=== PATIENT | female | born 1975 | race Caucasian/White ===

== ENCOUNTER 2017-10-11 16:07 | Emergency (ER) | payer OTHER ==
[2017-10-11 16:29] VITALS: RESP 18; TEMP 98
[2017-10-11 16:30] LABS: PLATELET COUNT 208 10^3/uL (150-400)
--- NOTE | 2017-10-11 16:39 | EDPHY ---
H & P Stated Complaint: sent down from Dr. Contreras office for further eval of CP Time Seen by Provider: 10/11/17 16:10 HPI/ROS: This pleasant 42-year-old female has a 5 day history of chest pain described as a dull ache, substernal in location"like a knot". She notes no exacerbating or alleviating factors. She has a long history of chest pains in the premenstrual. But reports that typically the pains last for 2 days. This time she has had pain for 5 days. Concerned about increased duration she presented initially to an urgent care clinic where she had a 12 lead EKG performed at 11: 27 a.m. On October 07 the reveals a normal EKG the rate of 58. She notes no exacerbating factors for her chest pain. It does not change when she eats. No change with exertion. She skied yesterday all day and noticed the pain there throughout the day but did not seem to worsen with exertion. She still able to sleep at night but notices the pain throughout the day. Dr. Werner saw her in his office suggested that she come to the emergency department for further workup given the increased duration of her symptoms. She arrived by private vehicle for further evaluation. ROS: Constitutional: No recent fevers or chills. She had mild fatigue today that she attributes to skiing yesterday. HEENT: No URI symptoms or other complaints new line pulmonary: She has mild intermittent shortness of breath that she attributes to her asthma in this improves with her Xopenex. Currently, no shortness of breath Neuro: Mild frontal headache intermittently in the past few days left frontal location 3/10 intensity. Typically these headaches last for 15 min at a time and currently she does not have a headache. Cardiovascular: She has occasional heart palpitations. She has worn a Holter monitor in the past is noted have PVCs at times. No recent change in her occasional heart palpitations. GI: No nausea, abdominal pain or other complaints except occasional GERD symptoms. She reports that her current chest pain does not feel like her GERD symptoms. Endocrine: No diaphoresis or other complaints Musculoskeletal: No leg pain or swelling Integumentary: No pallor or other complaints Complete review of symptoms otherwise negative. Source: Patient, RN/MD (Dr. 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 HERNIA, CSection anxietY.BICUSPID AORTIC VALVE, HTN, ASTHMA, - Family History Significant Family History: Heart disease (Her father had significant coronary disease requiring stents at age 64) - Social History Smoking Status: Never smoked Alcohol Use: Rarely Drug Use: None - Physical Exam Exam: General Appearance: Alert, no distress. Eyes: Pupils equal and round no pallor or injection. ENT, Mouth: Mucous membranes moist. Respiratory: There are no retractions, lungs are clear to auscultation. No chest wall tenderness. Cardiovascular: Regular rate and rhythm. No murmur gallop rub. No peripheral edema or leg tenderness Gastrointestinal: Abdomen is soft and nontender, no masses, bowel sounds normal. Neurological: GCS 15. Skin: Warm and dry, no rashes. Musculoskeletal: Neck is supple nontender. Extremities are symmetrical, full range of motion. Psychiatric: Mood and affect are normal. DIFFERENTIAL DIAGNOSIS: After history and physical exam differential diagnosis was considered for GERD with esophageal spasm, PE, musculoskeletal pain, myocardial ischemic pain, pleurisy Constitutional: Initial Vital Signs Temperature (C) 36.6 C 10/11/17 16:26 Heart Rate 78 10/11/17 16:26 Respiratory Rate 18 10/11/17 16:26 Blood Pressure 122/62 H 10/11/17 16:26 O2 Sat (%) 97 10/11/17 16:26 O2 Delivery Mode Room Air Allergies/Adverse Reactions: amoxicillin Allergy (Intermediate, Verified 01/10/16 21:30) rash and pruitis amlodipine Allergy (Verified 01/10/16 21:30) atropine sulfate [From ] Allergy (Verified 01/10/16 21:30) dicyclomine Allergy (Verified 01/10/16 21:30) hyoscyamine sulfate [From ] Allergy (Verified 01/10/16 21:30) levofloxacin Allergy (Verified 01/10/16 21:30) loracarbef [From Lorabid] Allergy (Verified 01/10/16 21:30) losartan [Losartan] Allergy (Verified 01/10/16 21:30) phenobarbital [From ] Allergy (Verified 01/10/16 21:30) polymyxin B sulfate [From Polytrim] Allergy (Verified 01/10/16 21:30) scopolamine hydrobromide [From ] Allergy (Verified 01/10/16 21:30) Sulfa (Sulfonamide Antibiotics) Allergy (Verified 01/10/16 21:30) trimethoprim [From Polytrim] Allergy (Verified 01/10/16 21:30) Home Medications: Medication Instructions Recorded Ascorbic Acid [Vitamin C 500 mg 1,500 mg PO DAILY 11/01/15 (*)] Cholecalciferol Vit D3 [Vitamin D3 4,000 units PO DAILY 11/01/15 2000 units] Herbals/Supplements -Info Only 1 ea PO DAILY 11/01/15 Pantoprazole Sodium [Protonix 40mg 40 mg PO DAILY 11/01/15 (*)] Pnv#71/Iron/Folic Acid/Dha [Prena1 1 each PO DAILY 11/01/15 Raquel Softgel] Claritin 11/30/15 Hydrochlorothiazide 11/30/15 Xopenex 11/30/15 Methocarbamol [Robaxin 500 mg (RX)] 1,000 mg PO QID PRN #30 tab 01/10/16 Medical Decision Making - Diagnostics EKG Interpretation: 12 lead EKG was performed at the urgent care, brought in by the patient. Although the date at the top is 10 07 2017, the patient confirms that was actually done today and the date is rhonchi on the EKG. This shows sinus rhythm with a rate of 58. Intervals: Normal throughout [place]: Normal throughout ST segments: Normal throughout Overall assessment normal EKG by my interpretation ED Course/Re-evaluation: IV, monitor The patient declined antacids or analgesics for her discomfort. She wants peace of mind by checking labs but isn't interested in resolving her mild chest discomfort. She declined a chest x-ray today explaining that she had a normal chest x-ray for months ago to a [facility]. She understands the risk of missing pneumothorax, worsening hiatal hernia, pulmonary lesions or other life- threatening ailments and accepts this risk. She is unwilling to have a chest x- ray at this time. Review of labs reveals a normal CBC, normal basic metabolic panel, normal troponin and normal D-dimer. I reviewed these labs with outpatient) and them out for her. Discussion: Patient with substernal chest pain without exacerbating factors that may represent esophageal spasm related to her GERD. After workup today, no evidence of ischemic cardiac disease, PE or other red flag findings. I encouraged her to double her Protonix dose and add Maalox and follow up with her GI specialist. She understands the need to return emergency department should she have any significant worsening of her symptoms despite the treatment plan. - Data Points Laboratory Results: Laboratory Results 10/11/17 16:17 10/11/17 16:17 10/11/17 10/11/17 10/11/17 16:17 16:17 16:17 WBC 6.97 10^3/uL 10^3/uL (3.80-9.50) RBC 4.38 10^6/uL 10^6/uL (4.18-5.33) Hgb 13.5 g/dL g/dL (12.6-16.3) Hct 39.6 % % (38.0-47.0) MCV 90.4 fL fL (81.5-99.8) MCH 30.8 pg pg (27.9-34.1) MCHC 34.1 g/dL g/dL (32.4-36.7) RDW 12.6 % % (11.5-15.2) Plt Count 208 10^3/uL 10^3/uL (150-400) MPV 9.6 fL fL (8.7-11.7) Neut % (Auto) 62.4 % % (39.3-74.2) Lymph % (Auto) 31.7 % % (15.0-45.0) [place] % (Auto) 4.6 % % (4.5-13.0) Eos % (Auto) 0.6 % % (0.6-7.6) Baso % (Auto) 0.4 % % (0.3-1.7) Nucleat RBC Rel Count 0.0 % % (0.0-0.2) Absolute Neuts (auto) 4.35 10^3/uL 10^3/uL (1.70-6.50) Absolute Lymphs (auto) 2.21 10^3/uL 10^3/uL (1.00-3.00) Absolute Monos (auto) 0.32 10^3/uL 10^3/uL (0.30-0.80) Absolute Eos (auto) 0.04 10^3/uL 10^3/uL (0.03-0.40) Absolute Basos (auto) 0.03 10^3/uL 10^3/uL (0.02-0.10) Absolute Nucleated RBC 0.00 10^3/uL 10^3/uL (0-0.01) Immature Gran % 0.3 % % (0.0-1.1) Immature Gran # 0.02 10^3/uL 10^3/uL (0.00-0.10) D-Dimer < 0.27 ug/mLFEU ug/mLFEU (0.00-0.50) Sodium 139 mEq/L mEq/L (135-145) Potassium 3.9 mEq/L mEq/L (3.5-5.2) Chloride 104 mEq/L mEq/L (97-110) Carbon Dioxide 25 mEq/l mEq/l (22-31) Anion Gap 10 mEq/L mEq/L (8-16) BUN 9 mg/dL mg/dL (7-23) Creatinine 0.8 mg/dL mg/dL (0.6-1.0) Estimated GFR > 60 Glucose 84 mg/dL mg/dL (70-100) Calcium 8.9 mg/dL mg/dL (8.5-10.4) Troponin I < 0.012 ng/mL ng/mL (0.000-0.034) Departure - Departure Disposition: Home, Routine, Self-Care Clinical Impression: Chest pain Qualifiers: Chest pain type: unspecified Qualified Code(s): R07.9 - Chest pain, unspecified Condition: Good Instructions: Chest Pain (ED) Additional Instructions: Diagnosis: Chest pain Plan: Consider doubling or Protonix dosed 80 mg this week and add Maalox. Have a bland diet as well. Follow up with your GI specialist for further evaluation. Return emergency department if you have any significant worsening of your symptoms despite the treatment plan. Referrals: Essie Bhatti MD [Primary Care Provider] - As per Instructions
[2017-10-11 17:24] VITALS: BP 132/77; PULSE 62; O2SAT 98
== END 2017-10-11 17:23 | disposition home or self-care (01) ==
LOC: CED 16:07
DX: R07.9 Chest pain, unspecified (principal); J45.909 Unspecified asthma, uncomplicated; I10 Essential (primary) hypertension
CPT/HCPCS: 80048-PO; 84484-PO; 85025-PO; 85378-PO